=== PATIENT | female | born 1985 | race Caucasian/White ===

== ENCOUNTER 2024-03-07 19:57 | Emergency (ER) | payer BC, SELFPAY ==
[2024-03-07 21:17] LABS: Specific Gravity 1.021 (1.005-1.030)
[2024-03-07 21:23] LABS: Specific Gravity 1.021 (1.005-1.030); Sqamous Epithelial <5 /HPF (None Seen); Urine Bacteria None Seen /HPF (<20); Urine Bilirubin NEGATIVE (Negative); Urine Blood Negative (Negative); Urine Clarity Turbid (Clear); Urine Color Yellow (Yellow); Urine Culture Reflex Order NOT NEEDED; Urine Glucose NEGATIVE (Negative); Urine Ketones NEGATIVE (Negative); Urine Microscopic Reflex YN ORDER UMIC; Urine Mucus Slight /HPF (None Seen); Urine Nitrite NEGATIVE (Negative); Urine Protein NEGATIVE (Negative); Urine RBC <5 /HPF (None Seen); Urine Urobilinogen Normal (Normal); Urine WBC <5 /HPF (<5); Urine WBC Clump Rare /HPF (None Seen); Urine pH 5.5 (5.0-7.0)
[2024-03-07 21:47] LABS: Absolute Eosinophils 0.3 K/uL (0-0.5); Absolute Lymphocytes (CBC) 1.4 K/uL (0.7-4.9); Absolute Monocytes 0.4 K/uL (0.1-1.3); Absolute Neutrophil 5.9 K/uL (1.8-8.0); Basophils % 0.4 % (0-1.3); Eosinophils % 3.9 % (0-4.4); Hematocrit 41.5 % (36.0-45.0); Hemoglobin 13.9 g/dL (12.0-15.0); Lymphocytes % 17.7 % (15.3-44.8); MCH 31.7 pg (27.0-35.0); MCHC 33.5 g/dL (32.0-36.0); MCV 94.5 fL (80-100); MPV 7.9 fL (7.6-11.3); Monocytes % 5.4 % (3.3-12.3); Neutrophils % 72.6 % (41.7-73.7); Nucleated Red Blood Cells % 0.1 % (0-0); Platelets 333 thou/uL (152-406); RBC Red Blood Cell Count 4.39 M/uL (3.86-4.86); Red Cell Distribution Width 14.7 % (12.1-15.2)
[2024-03-07 22:05] LABS: Albumin 3.4 g/dL (3.4-5.0); Albumin/Globulin Ratio 0.9 (1.1-1.8); Anion Gap 4.5 mEq/L (5.0-15.0); Bilirubin Total 0.2 mg/dL (0.2-1.0); Globulin 3.8 g/dL (2.3-3.5); Potassium 3.5 mEq/L (3.5-5.1); Protein, Total 7.2 g/dL (6.4-8.2)
[2024-03-07 22:14] LABS: C-Reactive Protein 4.52 mg/L (<3.00); NT PRO-BNP 64 pg/mL (<125)
[2024-03-07 22:19] LABS: Troponin High Sensitivity < 3.0 pg/mL (<58.9)
[2024-03-08 00:11] LABS: Hepatitis B Core IgM Nonreactive (Nonreactive); Hepatitis B surface AG Interp. Nonreactive (Nonreactive); Hepatitis C Virus Ab Nonreactive (Nonreactive)
[2024-03-08 00:12] LABS: HBsAG Nonreactive Report Report
--- NOTE | 2024-03-08 00:43 | RAD REPORT ---
PROCEDURE: CT Angiography Head and Neck With Intravenous Contrast CLINICAL INDICATION: The patient is 38 years old and is Female; Confused. TECHNIQUE: [facility] [place]/head and neck CT angiography protocol performed with intravenous contrast. Sagitta l and coronal reformatted images were created and reviewed. This CT exam was performed using one or more of the following dose reduction techniques: automated exposure control, adjustment of the m A and/or kV according to patient size, and/or use of iterative reconstruction technique. MIP reconstructed images were created and reviewed. COMPARISON: None. FINDINGS: HEAD: RIGHT ANTERIOR CEREBRAL ARTERY: Unremarkable No occlusion or significant stenosis. Anterior com municating artery is present. No aneurysm. RIGHT MIDDLE CEREBRAL ARTERY: Unremarkable No occlusion or significant stenosis. No aneurysm. RIGHT POSTERIOR CEREBRAL ARTERY: Unremarkable No occlusion or significant stenosis. No aneurysm . RIGHT INTRACRANIAL INTERNAL CAROTID ARTERY: Unremarkable No significant stenosis. No dissection or occlusion. RIGHT INTRACRANIAL VERTEBRAL ARTERY: Unremarkable No significant stenosis. No dissection or occ lusion. LEFT ANTERIOR CEREBRAL ARTERY: Unremarkable No occlusion or significant stenosis. No aneurysm. LEFT MIDDLE CEREBRAL ARTERY: Unremarkable No occlusion or significant stenosis. No aneurysm. LEFT POSTERIOR CEREBRAL ARTERY: Unremarkable No occlusion or significant stenosis. No aneurysm. LEFT INTRACRANIAL INTERNAL CAROTID ARTERY: Unremarkable No significant stenosis. No dissection or occlusion. LEFT INTRACRANIAL VERTEBRAL ARTERY: Unremarkable No significant stenosis. No dissection or occl usion. BASILAR ARTERY: Unremarkable No occlusion or significant stenosis. No aneurysm. OTHER VASCULATURE: No vascular malformation. BRAIN AND EXTRA-AXIAL SPACES: No evidence of acute infarct. Posterior fossa structures are unrema rkable. Ventricles are appropriate for age. No hydrocephalus. Basal cisterns are patent. No extra-axial fluid collection. No intracranial hemorrhage. No midline shift. No transtentorial herniation. No focal covarrubias-white matter differentiation abnormality. SINUSES: Partial opacification of the right maxillary sinus and left ethmoid air cells. NECK: RIGHT COMMON CAROTID ARTERY: Unremarkable No significant stenosis. No dissection or occlusion. RIGHT EXTRACRANIAL INTERNAL CAROTID ARTERY: Unremarkable No significant stenosis. No dissection or occlusion. RIGHT EXTERNAL CAROTID ARTERY: Unremarkable No occlusion. RIGHT EXTRACRANIAL VERTEBRAL ARTERY: Unremarkable No significant stenosis. No dissection or occ lusion. LEFT COMMON CAROTID ARTERY: Unremarkable No significant stenosis. No dissection or occlusion. LEFT EXTRACRANIAL INTERNAL CAROTID ARTERY: Unremarkable No significant stenosis. No dissection or occlusion. LEFT EXTERNAL CAROTID ARTERY: Unremarkable No occlusion. LEFT EXTRACRANIAL VERTEBRAL ARTERY: Unremarkable No significant stenosis. No dissection or occl usion. AORTA: The aortic arch and origins of the supraaortic arteries are not included within the provided images for evaluation. LUNG APICES: Trace biapical paraseptal emphysematous changes are redemonstrated. HEAD and NECK: BONES/JOINTS: Unremarkable No discrete lytic or blastic abnormalities. No fracture of the calvarium or visualized facial bones. SOFT TISSUES: Unremarkable CAROTID STENOSIS REFERENCE USING NASCET CRITERIA: % ICA stenosis = (1 - narrowest ICA diameter/diameter of distal cervical ICA) x 100. Mild - <50% stenosis. Moderate - 50-69% stenosis. Severe - 70-94% stenosis. Near occlusion - 95-99% stenosis. Occluded - 100% stenosis. IMPRESSION: No acute intracranial abnormality. No occlusion, high-grade stenosis, or acute abnormality of the cer vical or central intracranial arteries. Electronically signed by: Christiano Garcia MD 03/08/2024 12:29 AM [facility] Due to temporary technical issues with the PACS/[employer] reporting system, reports are being rishi d by the in-house radiologist without review as a courtesy to ensure prompt reporting the interpreting radiologist is fully responsible for the content of the report. Transcribed Date/Time: 03/08/2024 12:43 AM
--- NOTE | 2024-03-08 00:44 | RAD REPORT ---
PROCEDURE: CT Angiography Head and Neck With Intravenous Contrast CLINICAL INDICATION: The patient is 38 years old and is Female; Confused. TECHNIQUE: [facility] [place]/head and neck CT angiography protocol performed with intravenous contrast. Sagitta l and coronal reformatted images were created and reviewed. This CT exam was performed using one or more of the following dose reduction techniques: automated exposure control, adjustment of the m A and/or kV according to patient size, and/or use of iterative reconstruction technique. MIP reconstructed images were created and reviewed. COMPARISON: None. FINDINGS: HEAD: RIGHT ANTERIOR CEREBRAL ARTERY: Unremarkable No occlusion or significant stenosis. Anterior com municating artery is present. No aneurysm. RIGHT MIDDLE CEREBRAL ARTERY: Unremarkable No occlusion or significant stenosis. No aneurysm. RIGHT POSTERIOR CEREBRAL ARTERY: Unremarkable No occlusion or significant stenosis. No aneurysm . RIGHT INTRACRANIAL INTERNAL CAROTID ARTERY: Unremarkable No significant stenosis. No dissection or occlusion. RIGHT INTRACRANIAL VERTEBRAL ARTERY: Unremarkable No significant stenosis. No dissection or occ lusion. LEFT ANTERIOR CEREBRAL ARTERY: Unremarkable No occlusion or significant stenosis. No aneurysm. LEFT MIDDLE CEREBRAL ARTERY: Unremarkable No occlusion or significant stenosis. No aneurysm. LEFT POSTERIOR CEREBRAL ARTERY: Unremarkable No occlusion or significant stenosis. No aneurysm. LEFT INTRACRANIAL INTERNAL CAROTID ARTERY: Unremarkable No significant stenosis. No dissection or occlusion. LEFT INTRACRANIAL VERTEBRAL ARTERY: Unremarkable No significant stenosis. No dissection or occl usion. BASILAR ARTERY: Unremarkable No occlusion or significant stenosis. No aneurysm. OTHER VASCULATURE: No vascular malformation. BRAIN AND EXTRA-AXIAL SPACES: No evidence of acute infarct. Posterior fossa structures are unrema rkable. Ventricles are appropriate for age. No hydrocephalus. Basal cisterns are patent. No extra-axial fluid collection. No intracranial hemorrhage. No midline shift. No transtentorial herniation. No focal covarrubias-white matter differentiation abnormality. SINUSES: Partial opacification of the right maxillary sinus and left ethmoid air cells. NECK: RIGHT COMMON CAROTID ARTERY: Unremarkable No significant stenosis. No dissection or occlusion. RIGHT EXTRACRANIAL INTERNAL CAROTID ARTERY: Unremarkable No significant stenosis. No dissection or occlusion. RIGHT EXTERNAL CAROTID ARTERY: Unremarkable No occlusion. RIGHT EXTRACRANIAL VERTEBRAL ARTERY: Unremarkable No significant stenosis. No dissection or occ lusion. LEFT COMMON CAROTID ARTERY: Unremarkable No significant stenosis. No dissection or occlusion. LEFT EXTRACRANIAL INTERNAL CAROTID ARTERY: Unremarkable No significant stenosis. No dissection or occlusion. LEFT EXTERNAL CAROTID ARTERY: Unremarkable No occlusion. LEFT EXTRACRANIAL VERTEBRAL ARTERY: Unremarkable No significant stenosis. No dissection or occl usion. AORTA: The aortic arch and origins of the supraaortic arteries are not included within the provided images for evaluation. LUNG APICES: Trace biapical paraseptal emphysematous changes are redemonstrated. HEAD and NECK: BONES/JOINTS: Unremarkable No discrete lytic or blastic abnormalities. No fracture of the calvarium or visualized facial bones. SOFT TISSUES: Unremarkable CAROTID STENOSIS REFERENCE USING NASCET CRITERIA: % ICA stenosis = (1 - narrowest ICA diameter/diameter of distal cervical ICA) x 100. Mild - <50% stenosis. Moderate - 50-69% stenosis. Severe - 70-94% stenosis. Near occlusion - 95-99% stenosis. Occluded - 100% stenosis. IMPRESSION: No acute intracranial abnormality. No occlusion, high-grade stenosis, or acute abnormality of the cer vical or central intracranial arteries. Electronically signed by: Christiano Garcia MD 03/08/2024 12:29 AM [facility] Due to temporary technical issues with the PACS/[employer] reporting system, reports are being rishi d by the in-house radiologist without review as a courtesy to ensure prompt reporting the interpreting radiologist is fully responsible for the content of the report. Transcribed Date/Time: 03/08/2024 12:44 AM
--- NOTE | 2024-03-08 00:44 | RAD REPORT ---
PROCEDURE: CT Angiography Head and Neck With Intravenous Contrast CLINICAL INDICATION: The patient is 38 years old and is Female; Confused. TECHNIQUE: [facility] [place]/head and neck CT angiography protocol performed with intravenous contrast. Sagitta l and coronal reformatted images were created and reviewed. This CT exam was performed using one or more of the following dose reduction techniques: automated exposure control, adjustment of the m A and/or kV according to patient size, and/or use of iterative reconstruction technique. MIP reconstructed images were created and reviewed. COMPARISON: None. FINDINGS: HEAD: RIGHT ANTERIOR CEREBRAL ARTERY: Unremarkable No occlusion or significant stenosis. Anterior com municating artery is present. No aneurysm. RIGHT MIDDLE CEREBRAL ARTERY: Unremarkable No occlusion or significant stenosis. No aneurysm. RIGHT POSTERIOR CEREBRAL ARTERY: Unremarkable No occlusion or significant stenosis. No aneurysm . RIGHT INTRACRANIAL INTERNAL CAROTID ARTERY: Unremarkable No significant stenosis. No dissection or occlusion. RIGHT INTRACRANIAL VERTEBRAL ARTERY: Unremarkable No significant stenosis. No dissection or occ lusion. LEFT ANTERIOR CEREBRAL ARTERY: Unremarkable No occlusion or significant stenosis. No aneurysm. LEFT MIDDLE CEREBRAL ARTERY: Unremarkable No occlusion or significant stenosis. No aneurysm. LEFT POSTERIOR CEREBRAL ARTERY: Unremarkable No occlusion or significant stenosis. No aneurysm. LEFT INTRACRANIAL INTERNAL CAROTID ARTERY: Unremarkable No significant stenosis. No dissection or occlusion. LEFT INTRACRANIAL VERTEBRAL ARTERY: Unremarkable No significant stenosis. No dissection or occl usion. BASILAR ARTERY: Unremarkable No occlusion or significant stenosis. No aneurysm. OTHER VASCULATURE: No vascular malformation. BRAIN AND EXTRA-AXIAL SPACES: No evidence of acute infarct. Posterior fossa structures are unrema rkable. Ventricles are appropriate for age. No hydrocephalus. Basal cisterns are patent. No extra-axial fluid collection. No intracranial hemorrhage. No midline shift. No transtentorial herniation. No focal covarrubias-white matter differentiation abnormality. SINUSES: Partial opacification of the right maxillary sinus and left ethmoid air cells. NECK: RIGHT COMMON CAROTID ARTERY: Unremarkable No significant stenosis. No dissection or occlusion. RIGHT EXTRACRANIAL INTERNAL CAROTID ARTERY: Unremarkable No significant stenosis. No dissection or occlusion. RIGHT EXTERNAL CAROTID ARTERY: Unremarkable No occlusion. RIGHT EXTRACRANIAL VERTEBRAL ARTERY: Unremarkable No significant stenosis. No dissection or occ lusion. LEFT COMMON CAROTID ARTERY: Unremarkable No significant stenosis. No dissection or occlusion. LEFT EXTRACRANIAL INTERNAL CAROTID ARTERY: Unremarkable No significant stenosis. No dissection or occlusion. LEFT EXTERNAL CAROTID ARTERY: Unremarkable No occlusion. LEFT EXTRACRANIAL VERTEBRAL ARTERY: Unremarkable No significant stenosis. No dissection or occl usion. AORTA: The aortic arch and origins of the supraaortic arteries are not included within the provided images for evaluation. LUNG APICES: Trace biapical paraseptal emphysematous changes are redemonstrated. HEAD and NECK: BONES/JOINTS: Unremarkable No discrete lytic or blastic abnormalities. No fracture of the calvarium or visualized facial bones. SOFT TISSUES: Unremarkable CAROTID STENOSIS REFERENCE USING NASCET CRITERIA: % ICA stenosis = (1 - narrowest ICA diameter/diameter of distal cervical ICA) x 100. Mild - <50% stenosis. Moderate - 50-69% stenosis. Severe - 70-94% stenosis. Near occlusion - 95-99% stenosis. Occluded - 100% stenosis. IMPRESSION: No acute intracranial abnormality. No occlusion, high-grade stenosis, or acute abnormality of the cer vical or central intracranial arteries. Electronically signed by: Christiano Garcia MD 03/08/2024 12:29 AM [facility] Due to temporary technical issues with the PACS/[employer] reporting system, reports are being rishi d by the in-house radiologist without review as a courtesy to ensure prompt reporting the interpreting radiologist is fully responsible for the content of the report. Transcribed Date/Time: 03/08/2024 12:43 AM
--- NOTE | 2024-03-08 00:49 | ER ---
Nurse's Notes [facility] Name: Nataliia Jameson Age: 38 yrs Sex: Female : 1985 Arrival Date: 03/07/2024 Time: 19:57 Bed 13 Private MD: Diagnosis: Decreased Concentration, Acute confusion, Acute dizziness, Elevated blood pressure, Presentation: 03/07 20:47 Chief complaint: Patient states: I have had some delayed cognition. Pt's mother states kd3 that "you ask her a question and she acts like she cannot think. This has happened before and she has been to a neurologist and they just treat it as a migraine with an aura. This episode has been going on since last night". Coronavirus screen: Vaccine status: Patient reports receiving the 2nd dose of the covid vaccine. Ebola Screen: No symptoms or risks identified at this time. Initial Sepsis Screen: Does the patient meet any 2 criteria? No. Patient's initial sepsis screen is negative. Does the patient have a suspected source of infection? No. Patient's initial sepsis screen is negative. Risk Assessment: Do you want to hurt yourself or someone else? Patient reports no desire to harm self or others. Onset of symptoms was March 07, 2024. 20:47 Method Of Arrival: Ambulatory kd3 20:47 Acuity: LILIAN 3 kd3 Triage Assessment: 20:50 General: Appears in no apparent distress. Behavior is calm, cooperative. Pain: Denies kd3 pain. Neuro: Level of Consciousness is awake, alert, obeys commands, Oriented to person, place, situation, PT becomes tearful when asked about date and time. Pt does not answer specific date but says it is February. . 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 - Infectious Disease History:: Denies. - Social history:: Smoking status: Patient reports the use of cigarette tobacco products, smokes two packs cigarettes per day. - Family history:: not pertinent. Screenin:00 [facility] ED Fall Risk Assessment (Adult) History of falling in the last 3 months, rg5 including since admission No falls in past 3 months (0 pts) Confusion or Disorientation No (0 pts) Intoxicated or Sedated No (0 pts) Impaired Gait No (0 pts) Mobility Assist Device Used No (0 pt) Altered Elimination No (0 pt) Score/Fall Risk Level 0 - 2 = Low Risk Oriented to surroundings, Maintained a safe environment, Hourly rounding (assess needs \\T\\ fall precautionary measures) done. Abuse screen: Denies threats or abuse. Nutritional screening: No deficits noted. Tuberculosis screening: No symptoms or risk factors identified. Assessment: 21:00 General: Appears in no apparent distress. comfortable, Behavior is calm, cooperative, rg5 appropriate for age. 21:00 Pain: Denies pain. Neuro: Level of Consciousness is awake, alert, Oriented to person, rg5 place, time, Reports slow cognitive process. Cardiovascular: Denies chest pain, Patient's skin is warm and dry. Rhythm is sinus rhythm. Respiratory: Airway is patent Trachea midline Respiratory effort is even, unlabored, Respiratory pattern is regular, symmetrical. GI: Abdomen is round obese, Abd is soft and non tender. : No signs and/or symptoms were reported regarding the genitourinary system. EENT: No deficits noted. Derm: Skin is intact, Skin is dry, Skin is normal. Musculoskeletal: Circulation, motion, and sensation intact. Range of motion: intact in all extremities. 22:25 Reassessment: No changes from previously documented assessment. Patient and/or family rg5 updated on plan of care and expected duration. Pain level reassessed. Patient is alert, oriented x 3, equal unlabored respirations, skin warm/dry/pink. 23:37 Reassessment: Patient appears in no apparent distress at this time. Patient and/or rg5 family updated on plan of care and expected duration. Pain level reassessed. Patient is alert, oriented x 3, equal unlabored respirations, skin warm/dry/pink. 03/08 00:45 Reassessment: Patient and/or family updated on plan of care and expected duration. Pain rg5 level reassessed. Patient is alert, oriented x 3, equal unlabored respirations, skin warm/dry/pink. Patient states symptoms have improved. Vital Signs: 03/07 20:47 BP 126 / 87; Pulse 85; Resp 16; Temp 97.9(O); Pulse Ox 99% ; Weight 95.25 kg; Height 5 kd3 ft. 5 in. ; Pain 0/10; 21:47 BP 113 / 70; Pulse 84; Resp 17; Pulse Ox 99% on R/A; Pain 0/10; rg5 22:32 BP 112 / 72; Pulse 79; Resp 16; Pulse Ox 98% on R/A; rg5 23:36 BP 116 / 80; Pulse 77; Resp 18; Pulse Ox 98% on R/A; Pain 0/10; rg5 03/08 00:45 BP 124 / 85; Pulse 78; Resp 17; Pulse Ox 97% ; Pain 0/10; rg5 03/07 20:47 Body Mass Index 34.95 (95.25 kg, 165.1 cm) kd3 12 20:47 Pain Scale: Adult kd3 21:47 Pain Scale: Adult rg5 23:36 Pain Scale: Adult rg5 03/08 00:45 Pain Scale: Adult rg5 Jimenez Coma Score: 03/07 21:00 Eye Response: spontaneous(4). Motor Response: obeys commands(6). Verbal Response: rg5 oriented(5). Total: 15. 23:42 Eye Response: spontaneous(4). Motor Response: obeys commands(6). Verbal Response: sp4 oriented(5). Total: 15. NIH Stroke Scale Scores: 23:42 NIHSS Score: 0 sp4 ED Course: 20:00 Patient arrived in ED. gm2 20:06 Axel Nugent MD is Attending Physician. sp4 20:50 Triage completed. kd3 20:50 Arm band placed on right wrist. kd3 21:00 Patient has correct armband on for positive identification. Placed in gown. Call light rg5 in reach. Side rails up X 1. Door closed. Noise minimized. Warm blanket given. Verbal reassurance given. 21:00 No provider procedures requiring assistance completed. Inserted saline lock: 20 gauge rg5 in left antecubital area, using aseptic technique. Blood collected. Flushed with 10 mL NS. 21:22 Arash Guzman, ALIS is Primary Nurse. rg5 22:32 CT Head Brain wo Cont In Process Unspecified. EDMS 22:32 CT Head Angio In Process Unspecified. EDMS 22:32 CT Neck Angio In Process Unspecified. EDMS 22:48 No apparent distress. Resting quietly. Awaiting radiology results. Awaiting CT Scan. rg5 1219 00:48 Ambrose Nolen MD is Referral Physician. sp4 01:07 Provided Education on: post er care. rg5 01:07 bleeding controlled, No redness/swelling at site. Pressure dressing applied. rg5 Administered Medications: 03/07 21:40 Drug: NS 0.9% IV 1000 ml IV at 1000 ml once; to be given as a bolus over 60 minutes rg5 Route: IV; Rate: 1000 ml; Site: left antecubital; 22:30 Follow up: IV Status: Completed infusion; IV Intake: 1000ml rg5 22:45 Follow up: IV Status: Completed infusion; IV Intake: 1000ml rg5 Medication: 21:00 VIS not applicable for this client. rg5 Intake: 22:30 IV: 1000ml; Total: 1000ml. rg5 22:45 IV: 1000ml; Total: 2000ml. rg5 Outcome: 03/08 00:49 Discharge ordered by MD. sp4 01:12 Discharged to home ambulatory, rg5 01:12 Condition: stable 01:12 Discharge instructions given to patient, Instructed on discharge instructions, Demonstrated understanding of instructions, follow-up care, 01:13 Patient left the ED. rg5 NIH Stroke Scale - NIH Stroke Score Date: 03/07/2024 Time: 23:42 Total Score = 0 10. Dysarthria (speech clarity - read or repeat words) - 0(Normal) 11. Extinction and Inattention (visual/tactile/auditory/spatial/personal) - 0(No abnormality) 1a. Level of Consciousness (LOC) - 0(Alert) 1b. Level of Consciousness (LOC) (Month \\T\\ Age) - 0(Both) 1c. LOC Commands (Open \\T\\ Closes Eyes/Tray Drier) - 0(Both) 2. Best Gaze (Lateral Gaze Paresis) - 0(Normal) 3. Visual Field Loss - 0(No visual loss) 4. Facial Palsy - 0(Normal) 5a. Left Arm: Motor (10-second hold) - 0(No drift) 5b. Right Arm: Motor (10-second hold) - 0(No drift) 6a. Left Leg: Motor (5-second hold - always test supine) - 0(No drift) 6b. Right Leg: Motor (5-second hold - always test supine) - 0(No drift) 7. Limb Ataxia (finger/nose \\T\\ heel/tyler - test with eyes open) - 0(Absent) 8. Sensory Loss (pinprick arms/legs/face) - 0(Normal) 9. Best Language: Aphasia (description/naming/reading) - 0(No aphasia) Initials: sp4 Signatures: Dispatcher [employer] Venus Crockett RN RN kd3 Axel Nugent MD MD sp4 Sabrina Jackson 2 Arash Guzman RN RN rg5 Corrections: (The following items were deleted from the chart) 03/07 20:50 20:50 Allergies: No Known Allergies; kd3 kd3
--- NOTE | 2024-03-08 00:49 | EDPHYS ---
Physician Documentation [facility] Name: Nataliia Jameson Age: 38 yrs Sex: Female : 1985 Arrival Date: 03/07/2024 Time: 19:57 Bed 13 Private MD: ED Physician Axel Nugent HPI: 03/07 20:06 This 38 yrs old Female presents to ER via Unassigned with complaints of High sp4 Blood Pressure, Altered Mental Status. 03/08 20:02 38-year-old female presents with complaint of several weeks of difficulty sp4 concentrating. It was reported today with patient has difficulty putting her thoughts together and symptoms about the dizziness and generalized fatigue. Denied focal weakness. Patient reports she was investigated in the past for optic neuritis and other neurologic problems including difficulty with concentration. Patient cannot recall date of her last MRI.. CREATIVE DIRECTOR: 03/07 21:35 LMP N/A - control method, Not rg5 Historical: - Allergies: 20:50 Sulfa (Sulfonamide Antibiotics); kd3 - Immunization history:: Adult Immunizations up to date. - Infectious Disease History:: Denies. - Social history:: Smoking status: Patient reports the use of cigarette tobacco products, smokes two packs cigarettes per day. - Family history:: not pertinent. ROS: 03/08 20:02 Constitutional: Negative for fever, chills, and weight loss, positive difficulty sp4 concentrating, positive dizziness, positive generalized weakness All other systems are negative, Exam: 03/07 23:42 Constitutional: This is a well developed, well nourished patient who is awake, alert, sp4 and in no acute distress. Head/Face: Normocephalic, atraumatic. Eyes: Pupils equal round and reactive to light, extra-ocular motions intact. Lids and lashes normal. Conjunctiva and sclera are not injected. Cornea within normal limits. Periorbital areas with no swelling, redness, or edema. ENT: Nares patent. No nasal discharge, no septal abnormalities noted. Tympanic membranes are normal and external auditory canals are clear. Oropharynx with no redness, swelling, or masses, exudates, or evidence of obstruction, uvula midline. Mucous membranes moist. Neck: Trachea midline, no thyromegaly or masses palpated, and no cervical lymphadenopathy. Supple, full range of motion without nuchal rigidity, or vertebral point tenderness. Chest/axilla: Normal chest wall appearance and motion. Nontender with no deformity. No lesions are appreciated. Cardiovascular: Regular rate and rhythm with a normal S1 and S2. No gallops, murmurs, or rubs. Normal PMI, no JVD. No pulse deficits. Respiratory: Lungs have equal breath sounds bilaterally, clear to auscultation and percussion. No rales, rhonchi or wheezes noted. No increased work of breathing, no retractions or nasal flaring. Abdomen/GI: Soft, with normal bowel sounds. No distension or tympany. No guarding or rebound. No evidence of tenderness throughout. Back: No spinal tenderness. No costovertebral tenderness. Skin: Warm, dry with normal turgor. Normal color with no rashes, no lesions, and no evidence of cellulitis. MS/ Extremity: Pulses equal, no cyanosis. Neurovascular intact. Full, normal range of motion. Neuro: Awake and alert, GCS 15, oriented to person, place, time, and situation. Cranial nerves II-XII grossly intact. Motor strength 5/5 in all extremities. Sensory grossly intact. Psych: Awake, alert, with orientation to person, place and time. Behavior, mood, and affect are within normal limits ECG was reviewed by the Attending Physician. EKG 2057 normal sinus rhythm rate 78 23:54 Neuro: Exam negative for focal neuro deficits, weakness, Neurologic exam including sp4 reflexes and visual pina was normal. Gait: is steady, appropriate for age, Vital Signs: 20:47 BP 126 / 87; Pulse 85; Resp 16; Temp 97.9(O); Pulse Ox 99% ; Weight 95.25 kg; Height 5 kd3 ft. 5 in. ; Pain 0/10; 21:47 BP 113 / 70; Pulse 84; Resp 17; Pulse Ox 99% on R/A; Pain 0/10; rg5 22:32 BP 112 / 72; Pulse 79; Resp 16; Pulse Ox 98% on R/A; rg5 23:36 BP 116 / 80; Pulse 77; Resp 18; Pulse Ox 98% on R/A; Pain 0/10; rg5 03/08 00:45 BP 124 / 85; Pulse 78; Resp 17; Pulse Ox 97% ; Pain 0/10; rg5 03/07 20:47 Body Mass Index 34.95 (95.25 kg, 165.1 cm) kd3 03/07 20:47 Pain Scale: Adult kd3 21:47 Pain Scale: Adult rg5 23:36 Pain Scale: Adult rg5 03/08 00:45 Pain Scale: Adult rg5 NIH Stroke Scale Scores: 03/07 23:42 NIHSS Score: 0 sp4 [place] Coma Score: 21:00 Eye Response: spontaneous(4). Motor Response: obeys commands(6). Verbal Response: rg5 oriented(5). Total: 15. 23:42 Eye Response: spontaneous(4). Motor Response: obeys commands(6). Verbal Response: sp4 oriented(5). Total: 15. MDM: 20:13 Medical Screening Exam initiated sp4 03/08 00:41 ED course: PROCEDURE: CTAngiography Head and Neck With Intravenous Contrast CLINICAL sp4 INDICATION: The patient is 38 years old and is Female; Confused. TECHNIQUE: [place]/head and neck CT angiography protocol performed with intravenous contrast. Sagittal and coronal reformatted images were created and reviewed. This CT exam was performed using one or more of the following dose reduction techniques: automated exposure control, adjustment of the mA and/or kV according to patient size, and/or use of iterative reconstruction technique. MIP reconstructed images were created and reviewed. COMPARISON: None. FINDINGS: HEAD: RIGHTANTERIOR CEREBRAL ARTERY: Unremarkable No occlusion or significant stenosis. Anterior communicating artery is present. No aneurysm. RIGHT MIDDLE CEREBRAL ARTERY: Unremarkable No occlusion or significant stenosis. No aneurysm. RIGHT POSTERIOR CEREBRAL ARTERY: Unremarkable No occlusion or significant stenosis. No aneurysm. RIGHT INTRACRANIAL INTERNAL CAROTID ARTERY: Unremarkable No significant stenosis. No dissection or occlusion. RIGHT INTRACRANIAL VERTEBRAL ARTERY: Unremarkable No significant stenosis. No dissection or occlusion. LEFTANTERIOR CEREBRAL ARTERY: Unremarkable No occlusion or significant stenosis. No aneurysm. LEFT MIDDLE CEREBRAL ARTERY: Unremarkable No occlusion or significant stenosis. No aneurysm. LEFT POSTERIOR CEREBRAL ARTERY: Unremarkable No occlusion or significant stenosis. No aneurysm. LEFT INTRACRANIAL INTERNAL CAROTID ARTERY: Unremarkable No significant stenosis. No dissection or occlusion. LEFT INTRACRANIAL VERTEBRAL ARTERY: Unremarkable No significant stenosis. No dissection or occlusion. BASILAR ARTERY: Unremarkable No occlusion or significant stenosis. No aneurysm. OTHER VASCULATURE: No vascular malformation. BRAIN AND EXTRA-AXIAL SPACES: No evidence of acute infarct. Posterior fossa structures are unremarkable. Ventricles are appropriate for age. No hydrocephalus. Basal cisterns are patent. No extra-axial fluid collection. No intracranial hemorrhage. No midline shift. No transtentorial herniation. No focal covarrubias-white matter differentiation abnormality. SINUSES: Partial opacification of the right maxillary sinus and left ethmoid air cells. NECK: RIGHT COMMON CAROTID ARTERY: Unremarkable No significant stenosis. No dissection or occlusion. RIGHT EXTRACRANIAL INTERNAL CAROTID ARTERY: Unremarkable No significant stenosis. No dissection or occlusion. RIGHT EXTERNAL CAROTID ARTERY: Unremarkable No occlusion. RIGHT EXTRACRANIAL VERTEBRAL ARTERY: Unremarkable No significant stenosis. No dissection or occlusion. LEFT COMMON CAROTID ARTERY: Unremarkable No significant stenosis. No dissection or occlusion. LEFT EXTRACRANIAL INTERNAL CAROTID ARTERY: Unremarkable No significant stenosis. No dissection or occlusion. LEFT EXTERNAL CAROTID ARTERY: Unremarkable No occlusion. LEFT EXTRACRANIAL VERTEBRAL ARTERY: Unremarkable No significant stenosis. No dissection or occlusion. AORTA: The aortic arch and origins of the supraaortic arteries are not included within the provided images for evaluation. LUNG APICES: Trace biapical paraseptal emphysematous changes are redemonstrated. HEAD and NECK: BONES/JOINTS: Unremarkable No discrete lytic or blastic abnormalities. No fracture of the calvarium or visualized facial bones. SOFT TISSUES: Unremarkable CAROTID STENOSIS REFERENCE USING NASCET CRITERIA: % ICA stenosis = (1 - narrowest ICA diameter/diameter of distal cervical ICA) x 100. Mild - <50% stenosis. Moderate - 50-69% stenosis. Severe - 70-94% stenosis. Near occlusion - 95-99% stenosis. Occluded - 100% stenosis. IMPRESSION: No acute intracranial abnormality. No occlusion, high-grade stenosis, or acute abnormality of the cervical or central intracranial arteries. Electronically signed by: Christiano Garcia MD 03/08/2024 12:29 AM MACHINE MAINTENANCE TECHNICIAN . ED course: Impression - IMPRESSION: No acute intracranial abnormality. No occlusion, high-grade stenosis, or acute abnormality of the cervical or central intracranial arteries. Electronically signed by: Christiano Garcia MD 03/08/2024 12:29 AM. 20:02 Differential diagnosis: hypertensive crisis, Malignant HTN, CVA, intracerebral sp4 hemorrhage. Data reviewed: vital signs, nurses notes, old medical records, lab test result(s), EKG, radiologic studies, CT scan. Consideration of Admission/Observation Escalation of care including admission/observation considered. ED course: Patient had extensive workup without significant abnormality detected. Patient is stable for discharge home. Patient was referred to Dr. Nolen for outpatient MRI of the brain with and without contrast also possibly EEG. . 03/07 20:07 Order name: CBC with Diff; Complete Time: 23:41 sp4 03/07 20:07 Order name: CMP; Complete Time: 23:41 sp4 03/07 20:07 Order name: Lipase; Complete Time: 23:41 sp4 03/07 20:07 Order name: Test, Urine; Complete Time: 23:41 sp4 18 20:07 Order name: Urinalysis w/ reflexes; Complete Time: 23:41 sp4 1218 20:31 Order name: CRP; Complete Time: 23:41 sp4 03/07 20:31 Order name: TSH; Complete Time: 23:41 sp4 03/07 20:31 Order name: T4 Free; Complete Time: 23:41 sp4 18 20:31 Order name: Hepatitis Panel; Complete Time: 00:50 sp4 03/07 20:31 Order name: HIV Ag/Ab Combo; Complete Time: 00:50 sp4 03/07 20:32 Order name: Troponin High Sensitivity; Complete Time: 23:41 sp4 18 20:32 Order name: BNP; Complete Time: 23:41 sp4 03/07 20:30 Order name: CT Head Brain wo Cont sp4 03/07 20:30 Order name: CT Head Angio sp4 18 20:31 Order name: CT Neck Angio sp4 18 20:32 Order name: EKG; Complete Time: 20:32 sp4 03/07 20:07 Order name: IV Saline Lock; Complete Time: 21:40 sp4 03/07 20:07 Order name: Labs collected and sent; Complete Time: 21:40 sp4 18 20:32 Order name: EKG - Nurse/Tech; Complete Time: 21:40 sp4 EC/18 20:57 Rate is 78 beats/min. Rhythm is regular, Normal Sinus Rhythm. QRS [place] is Normal. [place] sp4 interval is normal. QRS interval is normal. QT interval is normal. No Q waves. T waves are Normal. No ST changes noted. Clinical impression: Normal ECG. Interpreted by me. Reviewed by me. Administered Medications: 21:40 Drug: NS 0.9% IV 1000 ml IV at 1000 ml once; to be given as a bolus over 60 minutes rg5 Route: IV; Rate: 1000 ml; Site: left antecubital; 22:30 Follow up: IV Status: Completed infusion; IV Intake: 1000ml rg5 22:45 Follow up: IV Status: Completed infusion; IV Intake: 1000ml rg5 Disposition Summary: 03/08/24 00:49 Discharge Ordered Problem: new sp4 Symptoms: have improved sp4 Condition: Stable sp4 Diagnosis - Decreased Concentration, Acute confusion, Acute dizziness, Elevated blood sp4 pressure, Followup: sp4 - With: Ambrose Nolen MD - When: 7 - 10 days - Reason: Recheck today's complaints Discharge Instructions: - Discharge Summary Sheet sp4 - Confusion sp4 Forms: - Patient Portal Instructions sp4 NIH Stroke Scale - NIH Stroke Score Date: 03/07/2024 Time: 23:42 Total Score = 0 10. Dysarthria (speech clarity - read or repeat words) - 0(Normal) 11. Extinction and Inattention (visual/tactile/auditory/spatial/personal) - 0(No abnormality) 1a. Level of Consciousness (LOC) - 0(Alert) 1b. Level of Consciousness (LOC) (Month \T\ Age) - 0(Both) 1c. LOC Commands (Open \T\ Closes Eyes/Ios Developer) - 0(Both) 2. Best Gaze (Lateral Gaze Paresis) - 0(Normal) 3. Visual Field Loss - 0(No visual loss) 4. Facial Palsy - 0(Normal) 5a. Left Arm: Motor (10-second hold) - 0(No drift) 5b. Right Arm: Motor (10-second hold) - 0(No drift) 6a. Left Leg: Motor (5-second hold - always test supine) - 0(No drift) 6b. Right Leg: Motor (5-second hold - always test supine) - 0(No drift) 7. Limb Ataxia (finger/nose \T\ heel/tyler - test with eyes open) - 0(Absent) 8. Sensory Loss (pinprick arms/legs/face) - 0(Normal) 9. Best Language: Aphasia (description/naming/reading) - 0(No aphasia) Initials: sp4 Signatures: Dispatcher Med[employer] Venus Crockett RN RN kd3 Axel Nugent MD MD sp4 Arash Guzman RN RN rg5 Corrections: (The following items were deleted from the chart) 20:07 20:07 CBC+H.LAB.BRZ ordered. EDMS EDMS 20: 20:07 COMPREHENSIVE METABOLIC PANEL+C.LAB.BRZ ordered. EDMS EDMS 20: 20:07 LIPASE+C.LAB.BRZ ordered. EDMS EDMS 20:07 20:07 Test, Urine+UC.LAB.BRZ ordered. EDMS EDMS 20:07 20:07 Urinalysis+U.LAB.BRZ ordered. EDMS EDMS 20:32 20:32 C-REACTIVE PROTEIN+C.LAB.BRZ ordered. EDMS EDMS 20:32 20:32 THYROID STIMULAT HORMONE+C.LAB.BRZ ordered. EDMS EDMS 20:32 20:32 T4 FREE+C.LAB.BRZ ordered. EDMS EDMS 20:32 20:32 Acute Hepatitis Panel+SC.LAB.BRZ ordered. EDMS EDMS 20:32 20:32 HIV Ag/Ab Combo+SC.LAB.BRZ ordered. EDMS EDMS 20:50 20:50 Allergies: No Known Allergies; kd3 kd3
[2024-03-08 01:40] VITALS: TEMP 97.9
[2024-03-08 01:46] VITALS: BP 124/85; O2SAT 97
--- NOTE | 2024-03-09 15:44 | EKG ---
Test Date: 2024-03-07 Test Time: 20:57:51 Knotting Machine Operator: MALI MEASUREMENT RESULTS: Intervals: Rate: 78 IN: 134 QRSD: 76 QT: 372 QTc: 424 [place]: P: 61 IN: 134 QRS: 12 T: 47 INTERPRETIVE STATEMENTS: Normal sinus rhythm Normal ECG Compared to ECG 03/26/2009 15:48:11 No significant changes Electronically Signed On 03-09-24 15:42:56 GAS STATION MANAGER by Jules Encinas
== END 2024-03-08 01:13 | disposition home or self-care (01) ==
LOC: ER 19:57
DX: R42 Dizziness and giddiness (principal); R41.0 Disorientation, unspecified; I10 Essential (primary) hypertension; F17.210 Nicotine dependence, cigarettes, uncomplicated; Z88.2 Allergy status to sulfonamides
CPT/HCPCS: 93005; 85025; 81001; 36415; 81025; 84443; 84484; 84439; 83690; 80053; 87389; 83880; 86140; 80074; 70450; 70496; 70498; 96360; 99284; Q9967